=== PATIENT | female | born 1945 | race Caucasian/White ===

== ENCOUNTER 2016-08-24 06:39 | Day surgery (SDC) | payer MEDICARE ==
[2016-08-24 07:30] VITALS: BP 116/52
[2016-08-24] MEDS ORDERED: AMLO10TA4 PO (07:57)
[2016-08-24] MEDS ORDERED: AMAN100T PO (07:57)
[2016-08-24] MEDS ORDERED: CLON2TAB PO (07:57)
[2016-08-24] MEDS ORDERED: HYOS0.127 PO (07:57)
[2016-08-24] MEDS ORDERED: FENTANYL PF 100 MCG/2ML ONE ×2 (07:57→07:58)
[2016-08-24] MEDS ORDERED: CYPR4TAB PO (07:57)
[2016-08-24] MEDS ORDERED: [UNRECOGNIZED DRUG - MIXTURE] PO (07:57)
[2016-08-24] MEDS ORDERED: MIDAZOLAM 1 MG/ML, 5ML ONE (07:57)
[2016-08-24] MEDS ORDERED: DEXL30CA2 PO (07:57)
[2016-08-24] MEDS ORDERED: FLUMAZENIL 0.1 MG/1 ML, 5ML ONE (07:58)
[2016-08-24] MEDS ORDERED: NALOXONE 1 MG/ML, 2ML ONE (07:58)
[2016-08-24] MEDS ORDERED: LIDOCAINE 1%, 20ML ONE (08:08)
== END 2016-08-24 10:15 ==
LOC: OUT 06:39
PROVIDERS: ATTEND Internal Medicine
DX: C85.10 Unspecified B-cell lymphoma, unspecified site (principal); I10 Essential (primary) hypertension; G03.9 Meningitis, unspecified; E03.9 Hypothyroidism, unspecified; C90.00 Multiple myeloma not having achieved remission; D50.8 Other iron deficiency anemias; E72.9 Disorder of amino-acid metabolism, unspecified; F43.0 Acute stress reaction; G35 Multiple sclerosis; Z87.39 Personal history of other diseases of the musculoskeletal system and connective tissue; Z87.440 Personal history of urinary (tract) infections; Z79.899 Other long term (current) drug therapy; Z79.82 Long term (current) use of aspirin; Z86.14 Personal history of Methicillin resistant Staphylococcus aureus infection
CPT/HCPCS: 36415; 38221; 77012; 85025; 85097; 88237; 88264; 88280; 88305; 88311; 88313; 99156; 99157; G0364; J2250; J3010; J3490; J2310

== ENCOUNTER → 2019-12-22 | Outpatient (CLI) | payer MEDICARE ==
[~2019-12-22] MED LIST: AMAN100T PO; AMLO10TA4 PO; CLON2TAB PO; CYPR4TAB36 PO; DEXL30CA2 PO; HYOS0.1268 PO; REGADENOSON 0.4 MG/5 ML SYRINGE ONE; [UNRECOGNIZED DRUG - MIXTURE] PO
== END | disposition home or self-care (01) ==
LOC: CFH 08:10
PROVIDERS: ATTEND Internal Medicine
DX: I25.10 Atherosclerotic heart disease of native coronary artery without angina pectoris (principal)
CPT/HCPCS: 78452; 93017; A9502; J2785